=== PATIENT | female | born 1985 | race Caucasian/White ===

== ENCOUNTER 2016-10-21 06:58 | Day surgery (SDC) | payer BC ==
[~2016-10-21 06:58] MED LIST: ACET500CAP PO; ASAB PO; ATV.5 PO; BEN25 PO; BENTYL20 PO; CARDCD180 PO; COMP10B PO; DIL2TAB PO; ENDOCET1 TA3 PO; FLONASE NAS; HYDREA PO; IBU-200200 MG PO; JAKAFI20 MG PO; LEVAQUIN750 MG PO; MARI2.5 PO; NUCYNTA ER200 MG PO; OCUFLOX OPH; PR25 PO; PRILO PO; SEROQUEL300 MG PO; TOPAMAX25 PO; ZOFRAN8 PO
[2016-10-21 07:54] LABS: BUN (BLOOD UREA NITROGEN) 9 MG/DL (6-23); CALCIUM, SERUM 8.7 MG/DL (8.5-10.4); CHLORIDE, SERUM 105 MMOL/L (96-112); CO2 (CARBON DIOXIDE) 27 MMOL/L (24-34); CREATININE 0.65 MG/DL (0.55-1.02); GFR AFRICAN AMERICAN 135 ML/MIN (>=60); GFR NON AFRICAN AMERICAN 117 ML/MIN (>=60); GLUCOSE, SERUM 96 MG/DL (60-99); POTASSIUM, SERUM 3.6 MMOL/L (3.5-5.3); SODIUM, SERUM 142 MMOL/L (135-148)
[2016-10-21 07:57] LABS: BASOPHILS 1.6 %; BASOPHILS ABSOLUTE 0.25 10/3/uL (0.0-0.16); EOSINOPHILS 2.8 %; EOSINOPHILS ABSOLUTE 0.44 10/3/uL (0.0-0.53); HEMATOCRIT 34.9 % (36.0-48.0); IMMATURE GRANULOCYTES 0.2 %; IMMATURE GRANULOCYTES ABSOLUTE 0.03 10/3/uL (0.0-0.11); LYMPHOCYTES 25.1 %; LYMPHOCYTES ABSOLUTE 3.92 10/3/uL (0.67-4.30); MEAN CORPUS HGB CONC 31.5 g/dL (32.0-36.0); MEAN CORPUSCULAR HEMOGLOB 23.5 pg (26.0-34.0); MEAN CORPUSCULAR VOLUME 74.6 fL (80-100); MONOCYTES 11.6 %; MONOCYTES ABSOLUTE 1.81 10/3/uL (0.21-1.20); NEUTROPHILS 58.7 %; NEUTROPHILS ABSOLUTE 9.14 10/3/uL (2.02-8.40); RBC DISTRIBUTION WIDTH 18.3 % (12.0-16.0); RED CELL COUNT 4.68 10/6/uL (4.0-5.6); WHITE BLOOD CELLS 15.6 10/3/uL (4.5-10.5)
[2016-10-21 07:58] LABS: PLATELET COUNT 1306 10/3/uL (150-400)
[2016-10-21 07:59] LABS: MANUAL DIFF NO %
[2016-10-21 08:00] LABS: RETICULOCYTE COUNT 1.9 % (0.5-2.5); RETICULOCYTE COUNT ABSOLUTE 91.6 10/3/uL (20.2-119.8)
[2016-10-21 08:35] LABS: ANISOCYTOSIS 1+ (5-10/OIF) (0-5/OIF); ELLIPTOCYTES 1+ (3-10/OIF) (0-2/OIF); MICROCYTES 1+ (5-10/OIF) (0-5/OIF)
[2016-10-21 08:36] LABS: TARGET CELLS OCC (1-2/OIF) (0-1/OIF)
== END 2016-10-21 11:51 | disposition home or self-care (01) ==
LOC: SDC 06:58
PROVIDERS: Anesthesiology; Pathology Cytopathology
PROC: 07DR3ZX Extraction of Iliac Bone Marrow, Percutaneous Approach, Diagnostic (ICD-10-PCS; principal; 2016-10-21 09:00)
DX: D47.3 Essential (hemorrhagic) thrombocythemia (principal); D47.1 Chronic myeloproliferative disease; D72.829 Elevated white blood cell count, unspecified; F32.9 Major depressive disorder, single episode, unspecified; F41.9 Anxiety disorder, unspecified; G43.909 Migraine, unspecified, not intractable, without status migrainosus; Z88.1 Allergy status to other antibiotic agents; Z88.2 Allergy status to sulfonamides; Z88.5 Allergy status to narcotic agent
CPT/HCPCS: 80048; 84703; 85025; 85045; 88305; 88311; 88313; 88341; 88342; A9270-GY